=== PATIENT | male | born 1995 | race Caucasian/White ===

== ENCOUNTER 2022-01-04 23:43 | Emergency (ER) | payer MEDICAID, SELFPAY ==
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
[2022-01-04 23:51] VITALS: BP 124/71; PULSE 79; RESP 13; TEMP 36.5; O2SAT 100
[2022-01-04 23:56] VITALS: PULSE 84; RESP 17
[2022-01-05] VITALS: PULSE 88; RESP 17; O2SAT 100
[2022-01-05] MEDS: Normal Saline 1,000 ML 1000 ML IV
[2022-01-05] MEDS: fentaNYL 100 MCG/2 ML VIAL (00:05)
[2022-01-05 00:14] LABS: Abs Immature Grans 0.29 10^3/uL (0.0-0.06); Absolute Basophil Count 0.04 10^3/uL (0.0-0.2); Absolute Eosinophil Count 0.08 10^3/uL (0.0-0.7); Basophils % 0.2; Eosinophils % 0.4; HCT 37.8 % (40.0-50.0); HGB 12.4 g/dL (13.5-17.5); Immature Grans % 1.5; Lymphocytes % 12.7; MCH 28.9 pg (27.0-33.0); MCHC 32.8 % (32.0-36.0); MCV 88 fL (80-95); MPV 9.3 fL (8.0-11.0); Monocytes % 3.9; Neutrophils % 81.3; Platelet Count 310 10^3/uL (130-400); RBC 4.29 10^6/uL (4.36-5.78); RDW 12.8 % (11.8-14.1); RDW-SD 41.1 fL
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
[2022-01-05] MEDS: Omnipaque 350 MG/ML 100 ML BTL IJ (00:22)
[2022-01-05 00:30] LABS: Absolute Lymphocyte Count 2.49 10^3/uL (1.2-3.4); Absolute Monocyte Count 0.76 10^3/uL (0.1-0.8); Absolute Neutrophil Count 15.93 10^3/uL (1.2-6.7)
[2022-01-05 00:32] LABS: ALT 90 U/L (16-63); AST 114 U/L (15-37); Albumin 3.3 g/dL (3.4-5.0); Alkaline Phosphatase 68 U/L (46-116); Anion Gap 6.8 mmol/L (3-11); BUN 10 mg/dL (7-18); Bilirubin, Total 0.3 mg/dL (0.2-1.0); CO2 31.2 mmol/L (21.0-32.0); CREATININE 1.2 mg/dL (0.70-1.30); Calcium 8.7 mg/dL (8.5-10.1); Chloride 106 mmol/L (98-107); Estimated GFR 86.07 (mL/min/1.73m2); Glucose 119 mg/dL (74-106); Lipase 604 U/L (73-393); Potassium 3.7 mmol/L (3.5-5.1); Sodium 144 mmol/L (136-145)
[2022-01-05 00:33] LABS: ETHANOL BLOOD < 3.0 mg/dL (<10)
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
--- NOTE | 2022-01-05 00:45 | DI.RAD_ITS ---
Exam(s) XR SHOULDER RT COMPLETE 2+V EXAM: XR SHOULDER RT COMPLETE 2+V CLINICAL HISTORY: right shoulder fracture. TECHNIQUE: 2D digital imaging was performed of the right shoulder. Three images were obtained. AP and Y-view views were obtained. COMPARISON: No exams were available for comparison FINDINGS: BONES: There is an acute comminuted fracture involving the surgical neck and the greater tuberosity. The distal fracture is displaced superiorly. The glenohumeral joint is well maintained. No bony de structive lesion is seen. JOINTS: No dislocation present. SOFT TISSUE: Normal. IMPRESSION: Comminuted displaced proximal right humeral fracture involving the neck and greater tuberosity as dav cribed above. DATA REPOSITORY: RADIATION DOSE DELIVERED:
[2022-01-05] MEDS: Ketorolac 15 MG/ML VIAL IVP (01:15)
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
[2022-01-05] MEDS: MORPHine 4 MG/ML SYR IVP (01:20)
[2022-01-05 03:25] VITALS: BP 124/71; PULSE 79; RESP 17; TEMP 36.5; O2SAT 100
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
== END 2022-01-05 03:51 | disposition home or self-care (01) ==
PROVIDERS: Emergency Provider Student in an Organized Health Care Education/Training Program
DX: S42.211A Unspecified displaced fracture of surgical neck of right humerus, initial encounter for closed fracture (principal); S02.2XXA Fracture of nasal bones, initial encounter for closed fracture; S02.5XXA Fracture of tooth (traumatic), initial encounter for closed fracture; F17.290 Nicotine dependence, other tobacco product, uncomplicated; Z23 Encounter for immunization; V89.2XXA Person injured in unspecified motor-vehicle accident, traffic, initial encounter; Y93.89 Activity, other specified
CPT/HCPCS: 36415; 74177; 76604; 76705; 76857; 80053; 80307; 83690; 86850; 86900; 86901; 90471; 96361; 96372; 96374; 96375; 99284; 70450; 70486; 71260; 72125; 73030; 80320; 81003; 85025; J1885; J2270; J3010; J3490

== ENCOUNTER 2022-01-05 10:22 | Emergency (ER) | payer MEDICAID, SELFPAY ==
[2022-01-05 10:31] VITALS: BP 106/71; PULSE 80; RESP 16; TEMP 36.7; O2SAT 100
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
[2022-01-05 11:01] LABS: Abs Immature Grans 0.05 10^3/uL (0.0-0.06); Absolute Eosinophil Count 0.03 10^3/uL (0.0-0.7); Absolute Lymphocyte Count 1.48 10^3/uL (1.2-3.4); Absolute Monocyte Count 1.24 10^3/uL (0.1-0.8); Absolute Neutrophil Count 10.65 10^3/uL (1.2-6.7); Basophils % 0.1; Eosinophils % 0.2; HCT 37.6 % (40.0-50.0); HGB 12.3 g/dL (13.5-17.5); Immature Grans % 0.4; MCH 29.1 pg (27.0-33.0); MCHC 32.7 % (32.0-36.0); MCV 89 fL (80-95); MPV 9.5 fL (8.0-11.0); Monocytes % 9.2; Neutrophils % 79.1; Platelet Count 285 10^3/uL (130-400); RBC 4.23 10^6/uL (4.36-5.78); RDW 13.1 % (11.8-14.1); RDW-SD 42.1 fL; WBC 13.47 10^3/uL (4.4-10.8)
[2022-01-05 11:05] LABS: Absolute Basophil Count 0.01 10^3/uL (0.0-0.2)
[2022-01-05 11:25] LABS: ALT 81 U/L (16-63); AST 61 U/L (15-37); Albumin 3.5 g/dL (3.4-5.0); Alkaline Phosphatase 68 U/L (46-116); Anion Gap 6.8 mmol/L (3-11); BUN 12 mg/dL (7-18); Bilirubin, Total 0.5 mg/dL (0.2-1.0); CO2 28.2 mmol/L (21.0-32.0); CREATININE 0.9 mg/dL (0.70-1.30); Calcium 8.9 mg/dL (8.5-10.1); Chloride 106 mmol/L (98-107); Estimated GFR 121.55 (mL/min/1.73m2); Glucose 104 mg/dL (74-106); Potassium 4.1 mmol/L (3.5-5.1); Sodium 141 mmol/L (136-145); Total Protein 7.9 g/dL (6.4-8.2)
--- NOTE | 2022-01-05 13:25 | NUR.NOTE ---
referral faxed to ortho, surgical and to cm to establish pcp
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
== END 2022-01-05 13:30 | disposition home or self-care (01) ==
PROVIDERS: Emergency Provider Student in an Organized Health Care Education/Training Program
DX: S36.00XA Unspecified injury of spleen, initial encounter (principal); V89.2XXA Person injured in unspecified motor-vehicle accident, traffic, initial encounter
CPT/HCPCS: 80053; 99282; 85025; 99284